=== PATIENT | male | born 1995 | race Caucasian/White ===

== ENCOUNTER 2018-04-18 13:45 | Emergency (ER) | payer SELFPAY ==
[~2018-04-18] VITALS: Ht 172.7 cm; Wt 68.0 kg
[2018-04-18 14:50] LABS: BASOPHILS # (AUTO) 0.1 /CMM (0.0-0.2); BASOPHILS % (AUTO) 2.2 % (0.0-2.0); EOSINOPHILS % (AUTO) 1.9 % (0.0-6.0); HEMATOCRIT 48 % (39-51); HEMOGLOBIN 15.7 g/dL (13.5-17.5); LYMPHOCYTES # (AUTO) 1.1 /CMM (0.8-4.8); LYMPHOCYTES % (AUTO) 23.7 % (20.0-44.0); MEAN CORPUSCULAR HEMOGLOBIN 29 PG (26.0-33.0); MEAN CORPUSCULAR HGB CONC 33 g/dl (31.0-36.0); MEAN CORPUSCULAR VOLUME 88 fL (80-96); MONOCYTES # (AUTO) 0.3 /CMM (0.1-1.30); MONOCYTES % (AUTO) 7.5 % (2.0-12.0); NEUTROPHILS # (AUTO) 2.9 /CMM (1.8-8.9); NEUTROPHILS % (AUTO) 64.7 % (43.0-81.0); PLATELET COUNT (AUTO) 223 /CMM (150-450); RDW COEFFICIENT OF VARIATION 11.8 (11.5-15.0); RED BLOOD CELL COUNT(AUTO) 5.44 MIL/uL (4.5-6.0); WHITE BLOOD COUNT (AUTO) 4.5 K/uL (4.3-11.0)
--- NOTE | 2018-04-18 14:50 | NUR ---
PT CAME IN WITH C/O PALPITATIONS AND CHEST PAIN X 2 DAYS. NAD NOTED. VSS. SEEN BY MD FOR EVAL. SAFETY AND COMFORT MEASURES PROVIDED. WILL MONITOR.
[2018-04-18 14:57] LABS: CALCIUM, SERUM 9.1 mg/dL (8.5-10.1); CARBON DIOXIDE 34 mmol/L (21-32); CHLORIDE 104 mmol/L (98-107); GLUCOSE 89 mg/dL (74-106); POTASSIUM 4.1 mmol/L (3.5-5.1); SODIUM SERUM 140 mmol/L (136-145); UREA NITROGEN, BLOOD 14 mg/dL (7-18)
[2018-04-18 15:02] LABS: INR 1.11 (0.85-1.15)
[2018-04-18 15:05] LABS: TROPONIN I < 0.017 ng/mL (0.00-0.056)
--- NOTE | 2018-04-18 15:05 | NUR ---
FISHERY DIVISION CHIEF AT FOR BLOOD DRAW.
--- NOTE | 2018-04-18 16:09 | NUR ---
Patient discharged to home in stable condition. Written and verbal after care instructions given. Patient verbalizes understanding of instruction.
[2018-04-18 16:11] VITALS: BP 139/77
== END 2018-04-18 16:11 | disposition home or self-care (01) ==
LOC: ER 13:53
DX: R07.89 Other chest pain (principal); F41.9 Anxiety disorder, unspecified; F43.9 Reaction to severe stress, unspecified; Z95.2 Presence of prosthetic heart valve
CPT/HCPCS: 36415; 71045; 80048; 80305; 84484; 85025; 85378; 85730; 93005; 99285; A4606; Z7610

== ENCOUNTER 2018-11-21 23:13 | Emergency (ER) | payer MEDICAID ==
[~2018-11-21] VITALS: Ht 180.3 cm; Wt 81.6 kg
--- NOTE | 2018-11-21 23:35 | NUR ---
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 AOx4, afebrile w/ resp even & unlabored, no acute distress noted. pt placed on continuous monitoring, bed low to ground w/ both siderails up. pending further eval fr [place].
--- NOTE | 2018-11-21 23:35 | NUR ---
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 AOx4, afebrile w/ resp even & unlabored, report slight dizziness, denies any blurred visions w/ no acute distress noted. pt placed on continuous monitoring, bed low to ground w/ both siderails up. pending further eval fr [place].
[2018-11-21] MEDS ORDERED: ONDANSETRON HCL/PF 4 MG/2 ML VIAL ONE (23:42)
--- NOTE | 2018-11-21 23:48 | NUR ---
IVHL started, labs drawn & sent to lab. pt medicated as ordered for continued nausea w/ no vomiting, on continuous monitoring.
[2018-11-21 23:51] LABS: BASOPHILS % (AUTO) 0.3 % (0.0-2.0); EOSINOPHILS % (AUTO) 0.8 % (0.0-6.0); HEMATOCRIT 48 % (39-51); HEMOGLOBIN 16.4 g/dL (13.5-17.5); LYMPHOCYTES # (AUTO) 1.1 /CMM (0.8-4.8); LYMPHOCYTES % (AUTO) 21.1 % (20.0-44.0); MEAN CORPUSCULAR HGB CONC 34 g/dl (31.0-36.0); MEAN CORPUSCULAR VOLUME 88 fL (80-96); MONOCYTES # (AUTO) 0.5 /CMM (0.1-1.30); MONOCYTES % (AUTO) 9.1 % (2.0-12.0); NEUTROPHILS # (AUTO) 3.7 /CMM (1.8-8.9); NEUTROPHILS % (AUTO) 68.7 % (43.0-81.0); PLATELET COUNT (AUTO) 220 /CMM (150-450); RED BLOOD CELL COUNT(AUTO) 5.46 MIL/uL (4.5-6.0); WHITE BLOOD COUNT (AUTO) 5.3 K/uL (4.3-11.0)
--- NOTE | 2018-11-21 23:53 | NUR ---
pt brought to CT via [facility]on w/ nad noted.
[2018-11-21 23:58] LABS: CALCIUM, SERUM 8.5 mg/dL (8.5-10.1); CARBON DIOXIDE 26 mmol/L (21-32); CHLORIDE 102 mmol/L (98-107); CREATININE 1.2 mg/dL (0.6-1.3); GLUCOSE 129 mg/dL (74-106); POTASSIUM 3.4 mmol/L (3.5-5.1); SODIUM SERUM 140 mmol/L (136-145); UREA NITROGEN, BLOOD 17 mg/dL (7-18)
[2018-11-22] MEDS ORDERED: ONDANSETRON HCL/PF 4 MG/2 ML VIAL IVP ONE
[2018-11-22] MEDS ORDERED: IV NS 0.9% 1,000 ML BAG IV ONE
--- NOTE | 2018-11-22 00:02 | NUR ---
pt back fr CT w/ resp even & unlabored, nad noted. On continuous monitoring. Friend continues to be at bedside.
[2018-11-22 00:05] LABS: ALANINE AMINOTRANSFERASE 43 U/L (12-78); ALBUMIN 3.9 g/dL (3.4-5.0); ALKALINE PHOSPHATASE 77 U/L (46-116); ASPARTATE AMINOTRANSFERASE 28 U/L (15-37); BILIRUBIN,DIRECT 0.1 mg/dL (0.0-0.2); BILIRUBIN,TOTAL 0.3 mg/dL (0.2-1.0); TOTAL PROTEIN, SERUM 7.2 g/dL (6.4-8.2)
[2018-11-22] MEDS ORDERED: ACETAMINOPHEN ES 500 MG TABLET ONE (00:10)
[2018-11-22] MEDS ORDERED: ACETAMINOPHEN ES 500 MG TABLET PO ONE (00:30)
--- NOTE | 2018-11-22 00:30 | NUR ---
pt resting comfortably in bed w/ resp even & unlabored, denies any headache or pain at this time w/ nad noted. pt friend at bedside. Awaiting CT results.
[2018-11-22 01:33] VITALS: BP 142/84
--- NOTE | 2018-11-22 01:34 | NUR ---
pt ambulatory w/ steady gait, resp even & unlabored, w/ nad noted. pt friend at bedside to drive pt home. IV removed. Catheter intact and site benign. Pressure and 4x4 applied to site. No bleeding noted.Patient discharged to home in stable condition. Written and verbal after care instructions given. Patient verbalizes understanding of instruction.
== END 2018-11-22 01:34 | disposition home or self-care (01) ==
LOC: ER 23:15
DX: R55 Syncope and collapse (principal); R11.0 Nausea; F12.90 Cannabis use, unspecified, uncomplicated
CPT/HCPCS: 36415; 70450; 71045; 80048; 80076; 84484; 85025; 93005; 96361; 96374; 99284; J2405; J7030

== ENCOUNTER 2019-05-01 02:10 | Emergency (ER) | payer MEDICAID ==
[~2019-05-01] VITALS: Ht 180.3 cm; Wt 74.8 kg
--- NOTE | 2019-05-01 02:37 | NUR ---
RAUL FROM [facility] ER BED 10. AAOX4. NO RESP DISTRESS NOTED. PT IS ANXIOUS. AMBULATORY. C/O LUQ ABD PAIN WHICH HAS BEEN GOING ON FOR THE PAST 2 DAYS AND DECIDED TO COME IN TO HAVE IN IT CHECK. PT REPORT NAUSEA, NO VOMMITING AND NO BM. PT REPORTS THAT HE HAD A DX OF MONONUCLEOSIS. MD AT BEDSIDE FOR EVAL. AWAITING ORDERS.
--- NOTE | 2019-05-01 02:51 | NUR ---
Patient discharged to home in stable condition. Written and verbal after care instructions given. Patient verbalizes understanding of instruction. Pt ambulatory with a steady gait
[2019-05-01 02:52] VITALS: BP 138/94
== END 2019-05-01 02:48 | disposition home or self-care (01) ==
LOC: ER 02:14
DX: B27.90 Infectious mononucleosis, unspecified without complication (principal); R53.83 Other fatigue; F10.10 Alcohol abuse, uncomplicated; Y90.9 Presence of alcohol in blood, level not specified